=== PATIENT | female | born 1960 | race Caucasian/White ===

== ENCOUNTER 2023-07-23 10:14 | Day surgery (SDC) | payer OTHER ==
[~2023-07-23] VITALS: Ht 154.9 cm; Wt 63.5 kg
[2023-07-23] MEDS ORDERED: fentaNYL citrate 0.05 MG/ML VIAL ONE (12:50)
[2023-07-23] MEDS ORDERED: LIDOCAINE 2% 100 MG/5 ML UJET TP ONE (12:50)
[2023-07-23] MEDS ORDERED: fentaNYL citrate 0.05 MG/ML VIAL IVP ONE (15:45)
== END 2023-07-23 14:18 | disposition home or self-care (01) ==
LOC: MDS 10:14 → MMU 10:35 → MDS 14:18
PROVIDERS: ATTEND Internal Medicine Gastroenterology
DX: Z12.11 Encounter for screening for malignant neoplasm of colon (principal); K63.5 Polyp of colon; Z86.010 Personal history of colon polyps; G43.909 Migraine, unspecified, not intractable, without status migrainosus; Z90.49 Acquired absence of other specified parts of digestive tract; E78.00 Pure hypercholesterolemia, unspecified; Z79.899 Other long term (current) drug therapy
CPT/HCPCS: 82948; J3010